=== PATIENT | male | born 1970 ===

== ENCOUNTER 2020-03-28 11:15 | Inpatient (IN) | payer OTHER ==
[~2020-03-28] VITALS: Ht 182.9 cm; Wt 99.8 kg
[2020-04-04] MEDS ORDERED: GABAPENTIN300 MG PO (08:17)
[2020-04-04] MEDS ORDERED: ULTRACET PO (08:17)
== END 2020-04-04 15:11 | disposition home or self-care (01) | DRG 473 ==
LOC: O/R 04-02 06:00 → SURG 04-02 06:00 → EDSEX 04-02 06:00 → SURH 04-02 07:00 → O/R 04-02 11:15 → SURH 04-02 11:15 → SURG 04-02 13:27
PROVIDERS: ADMIT Neurological Surgery; ATTEND Neurological Surgery
PROC: 0RG10A0 Fusion of Cervical Vertebral Joint with Interbody Fusion Device, Anterior Approach, Anterior Column, Open Approach (ICD-10-PCS; 2020-04-02)
PROC: 0RB30ZZ Excision of Cervical Vertebral Disc, Open Approach (ICD-10-PCS; principal; 2020-04-02 07:00)
DX: M48.02 Spinal stenosis, cervical region (principal); M54.12 Radiculopathy, cervical region; R13.19 Other dysphagia; Z20.828 Contact with and (suspected) exposure to other viral communicable diseases